=== PATIENT | female | born 1985 | race Caucasian/White ===

== ENCOUNTER → 2019-04-11 15:31 | Observation (INO) ==
[2019-04-11 14:43] LABS: Bilirubin,Urine Negative (Negative); Blood,Urine Negative (Negative); Clarity,Urine Cloudy (Clear); Color,Urine Yellow (Yellow); Glucose,Urine (UA) Normal (Normal); Ketones,Urine Trace mg/dL (Negative); Leukocyte Esterase,Urine Negative (Negative); Nitrite,Urine Negative (Negative); PH,Urine 6.5 pH Units (5.0-8.0); Protein,Urine Trace mg/dL (Neg-Trace); Specific Gravity,Urine > 1.030 (1.010-1.025); Urobilinogen,Urine Normal (Normal)
[2019-04-11 14:45] LABS: Bacteria,Urine Moderate per hpf (None-Few); Hyaline Casts,Urine Few per lpf (None-Few); Squamous Epithelial Cell,Urine Many per lpf (None-Few)
[2019-04-11 14:56] LABS: Amphetamine Screen,Urine Positive ng/mL (Cutoff=1000); Barbiturate Screen,Urine Negative ng/mL (Cutoff=200); Benzodiazepines Screen,Urine Negative ng/mL (Cutoff=200); Cannabinoid Screen,Urine Negative ng/mL (Cutoff = 50); Cocaine Screen,Urine Negative ng/mL (Cutoff= 300); Opiate Screen,Urine Negative ng/mL (Cutoff=300); Phencyclidine Screen,Urine Negative ng/mL (Cutoff=25)
[2019-04-11 14:57] LABS: RBC,Urine 0-3 per hpf (0-3)
== END | disposition home or self-care (01) ==
LOC: 1NENULAB
PROVIDERS: ADMIT Advanced Practice Midwife; ATTEND Advanced Practice Midwife

== ENCOUNTER → 2019-05-19 12:02 | Observation (INO) ==
[2019-05-19 11:12] LABS: Basophils % 0.3 %; Eosinophils # 0.3 K/mcL (0.0-0.6); Eosinophils % 2.4 %; Hematocrit 33.4 % (35.3-44.9); Hemoglobin 11.2 g/dL (11.5-15.4); Immature Granulocytes % 0.5 % (0-4); Lymphocytes # 1.7 K/mcL (0.6-4.6); Lymphocytes % 12.2 %; Mean Corpuscular HGB Conc 33.5 g/dL (31.6-35.5); Mean Corpuscular Hemoglobin 27.5 pg (28.0-33.3); Mean Corpuscular Volume 82.1 fL (83.0-100.0); Mean Platelet Volume 11.2 fL (9.4-12.4); Monocytes # 0.7 K/mcL (0.0-1.3); Monocytes % 4.7 %; Neutrophils # 11.4 K/mcL (1.6-8.9); Platelet Count 255 K/mcL (140-400); Red Blood Count 4.07 M/mcL (3.82-4.97); Red Cell Distribution Width 14.6 % (11.5-14.5); Segmented Neutrophils % 79.9 %; White Blood Count 14.3 K/mcL (4.3-11.1)
[2019-05-19 11:19] LABS: Protein/Creatinine Ratio,Urine 0.12 mg/mg (0.00-0.20)
[2019-05-19 11:25] LABS: Alanine Aminotransferase 12 Units/L (7-52); Aspartate Amino Transferase 15 Units/L (13-39); BUN/Creatinine Ratio 30 (6-26); Blood Urea Nitrogen 14 mg/dL (6-20); Lactate Dehydrogenase 127 Units/L (140-271); Uric Acid 5.4 mg/dL (2.3-7.6); eGFR For African Americans > 60 (> 60); eGFR For Non-African Americans > 60 (> 60)
== END | disposition home or self-care (01) ==
LOC: 1NENULAB
PROVIDERS: ADMIT Registered Nurse; ATTEND Registered Nurse

== ENCOUNTER 2019-05-21 22:00 | Inpatient (IN) ==
[2019-05-22] MEDS ORDERED: Lidocaine 1% 20 ML MDV ID PRN (12:22)
[2019-05-22] MEDS ORDERED: Naloxone 0.4 MG/ML INJ IVP PRN (12:22)
[2019-05-22] MEDS ORDERED: Ondansetron 4 MG/2 ML VIAL IVP PRN (12:22)
[2019-05-22] MEDS ORDERED: Famotidine 20 MG/2 ML VIAL IVP PRN (12:22)
[2019-05-22] MEDS ORDERED: *HR* FentaNYL (PF) 100 MCG/2 ML VIAL IVP PRN (12:22)
[2019-05-22] MEDS ORDERED: Azithromycin 500 MG in 0.9 % Sodium Chloride 250 ML IVPB ONE (12:22)
[2019-05-22] MEDS ORDERED: Metoclopramide 10 MG/2 ML VIAL IVP PRN (12:22)
[2019-05-22] MEDS ORDERED: EPHEDrine 50 MG/ML VIAL IVP PRN (12:45)
[2019-05-22 13:04] LABS: Basophils # 0.1 K/mcL (0.0-0.2); Basophils % 0.3 %; Eosinophils # 0.2 K/mcL (0.0-0.6); Eosinophils % 1.4 %; Hematocrit 33.4 % (35.3-44.9); Hemoglobin 11.2 g/dL (11.5-15.4); Immature Granulocytes % 0.5 % (0-4); Lymphocytes # 1.6 K/mcL (0.6-4.6); Lymphocytes % 10.9 %; Mean Corpuscular HGB Conc 33.5 g/dL (31.6-35.5); Mean Corpuscular Hemoglobin 27.9 pg (28.0-33.3); Mean Corpuscular Volume 83.3 fL (83.0-100.0); Mean Platelet Volume 11.1 fL (9.4-12.4); Monocytes # 0.6 K/mcL (0.0-1.3); Monocytes % 4.4 %; Platelet Count 255 K/mcL (140-400); Red Blood Count 4.01 M/mcL (3.82-4.97); Red Cell Distribution Width 14.6 % (11.5-14.5); Segmented Neutrophils % 82.5 %; White Blood Count 14.6 K/mcL (4.3-11.1)
[2019-05-22 14:47] LABS: Amphetamine Screen,Urine Negative ng/mL (Cutoff=1000); Barbiturate Screen,Urine Negative ng/mL (Cutoff=200); Benzodiazepines Screen,Urine Negative ng/mL (Cutoff=200); Cannabinoid Screen,Urine Negative ng/mL (Cutoff = 50); Cocaine Screen,Urine Negative ng/mL (Cutoff= 300); Opiate Screen,Urine Negative ng/mL (Cutoff=300); Phencyclidine Screen,Urine Negative ng/mL (Cutoff=25); Protein/Creatinine Ratio,Urine 0.12 mg/mg (0.00-0.20)
[2019-05-22 15:12] LABS: Alanine Aminotransferase 12 Units/L (7-52); Aspartate Amino Transferase 16 Units/L (13-39); BUN/Creatinine Ratio 30 (6-26); Blood Urea Nitrogen 14 mg/dL (6-20); Lactate Dehydrogenase 183 Units/L (140-271); Uric Acid 5.2 mg/dL (2.3-7.6); eGFR For African Americans > 60 (> 60); eGFR For Non-African Americans > 60 (> 60)
[2019-05-22] MEDS ORDERED: *HR* Labetalol 20 MG/4 ML SYRINGE IVP ONE ×2 (16:22→16:28)
[2019-05-23] MEDS ORDERED: Penicillin G Potassium 5,000,000 UNIT in 0.9 % Sodium Chloride Mini Bag 100 ML IVPB ONE
[2019-05-23] MEDS: Ringers Solution, Lactated 1,000 ML IVC SCH (00:02)
[2019-05-23] MEDS ORDERED: *HR* Labetalol 20 MG/4 ML SYRINGE IVP ONE (00:17)
[2019-05-23] MEDS ORDERED: miSOPROStoL 25 MCG TABLET PO ONE (02:00)
[2019-05-23] MEDS: Penicillin G Potassium 2,500,000 UNIT in 0.9 % Sodium Chloride 100 ML IVPB SCH ×5 (03:54→22:41)
[2019-05-23] MEDS ORDERED: miSOPROStoL 25 MCG TABLET PO PRN (09:11)
[2019-05-23] MEDS: miSOPROStoL 25 MCG TABLET VG PRN ×2 (18:42→23:13)
[2019-05-23] MEDS ORDERED: Oxytocin 20 units/ LR 1000 mL 20 UNIT/1,000 ML BAG IVC SCH (23:45)
[2019-05-24] MEDS: Penicillin G Potassium 2,500,000 UNIT in 0.9 % Sodium Chloride 100 ML IVPB SCH ×2 (03:06→06:33)
[2019-05-24] MEDS ORDERED: *HR* Labetalol 20 MG/4 ML SYRINGE IVP STA (03:44)
[2019-05-24] MEDS ORDERED: Famotidine 20 MG/2 ML VIAL IVP ONE (08:32)
[2019-05-24] MEDS ORDERED: Ringers Solution, Lactated 1,000 ML IVC ONE (08:32)
[2019-05-24] MEDS ORDERED: Oxytocin 20 units/ LR 1000 mL 20 UNIT/1,000 ML BAG IVC ONE (08:32)
[2019-05-24] MEDS ORDERED: Metoclopramide 10 MG/2 ML VIAL IVP ONE (08:32)
[2019-05-24] MEDS ORDERED: CeFAZolin Syr 3,000MG/30 ML 3,000 MG/30 ML SYRINGE IVPB ONE (08:32)
[2019-05-24] MEDS ORDERED: Azithromycin 500 MG in 0.9 % Sodium Chloride 250 ML IVPB ONE (08:32)
[2019-05-24] MEDS ORDERED: *HR* Phenylephrine 10 MG/ML VIAL ONE (10:24)
[2019-05-24] MEDS ORDERED: *HR* Oxytocin 10 UNIT/ML VIAL IM ONE (10:24)
[2019-05-24] MEDS ORDERED: *HR* FentaNYL (PF) 100 MCG/2 ML VIAL ONE (10:24)
[2019-05-24] MEDS ORDERED: *HR* Morphine Sulfate/PF 10 MG/10 ML AMPUL ONE (10:24)
[2019-05-24] MEDS ORDERED: Ringers Solution, Lactated 1,000 ML ONE (10:24)
[2019-05-24] MEDS ORDERED: EPHEDrine 50 MG/ML VIAL ONE (12:10)
[2019-05-24] MEDS ORDERED: Ondansetron 4 MG/2 ML VIAL IVP ONE (13:26)
[2019-05-24] MEDS ORDERED: *HR* Promethazine 25 MG/ML VIAL IVP PRN (13:26)
[2019-05-24] MEDS ORDERED: *HR* OxyCODONE/APAP 5/325 TABLET PO PRN ×2 (13:26→15:41)
[2019-05-24] MEDS ORDERED: *HR* HYDROmorphone (PF) 1 MG/ML SYRINGE IVP PRN (13:26)
[2019-05-24] MEDS ORDERED: Ketorolac 30 MG/ML VIAL IVP ONE (13:26)
[2019-05-24] MEDS ORDERED: Ondansetron 4 MG/2 ML VIAL ONE (13:39)
[2019-05-24] MEDS ORDERED: *HR* OxyCODONE Immed Rel 5 MG TABLET PO PRN (15:41)
[2019-05-24] MEDS ORDERED: Simethicone 80 MG TAB.CHEW PO PRN (15:41)
[2019-05-24] MEDS ORDERED: Sennosides 8.6 MG TABLET PO PRN (15:41)
[2019-05-24] MEDS ORDERED: Ondansetron 4 MG/2 ML VIAL IVP PRN (15:41)
[2019-05-24] MEDS ORDERED: Metoclopramide 10 MG/2 ML VIAL IVP PRN (15:41)
[2019-05-24] MEDS ORDERED: Acetaminophen 325 MG TABLET PO PRN (15:41)
[2019-05-24] MEDS: cephALEXin 500 MG CAPSULE PO SCH ×2 (17:03→20:55)
[2019-05-24] MEDS: *HR* Metformin 500 MG TABLET PO SCH (20:55)
[2019-05-24] MEDS: Ibuprofen 600 MG TABLET PO PRN (23:57)
[2019-05-25] MEDS: Oxytocin 20 units/ LR 1000 mL 20 UNIT/1,000 ML BAG IVC SCH ×2 (02:45)
[2019-05-25] MEDS: Epidural Premix (fent/bupiv) 110 ML EP SCH ×2 (02:46→02:47)
[2019-05-25] MEDS: Ringers Solution, Lactated 1,000 ML IVC SCH ×2 (02:46→02:47)
[2019-05-25] MEDS: Penicillin G Potassium 2,500,000 UNIT in 0.9 % Sodium Chloride 100 ML IVPB SCH (02:48)
[2019-05-25] MEDS: *HR* Enoxaparin 40 MG/0.4 ML SYRINGE SQ SCH (06:25)
[2019-05-25 06:34] LABS: Basophils % 0.3 %; Eosinophils % 0.1 %; Hematocrit 29.3 % (35.3-44.9); Immature Granulocytes % 0.5 % (0-4); Lymphocytes # 1.3 K/mcL (0.6-4.6); Lymphocytes % 8.2 %; Mean Corpuscular HGB Conc 32.8 g/dL (31.6-35.5); Mean Corpuscular Hemoglobin 27.5 pg (28.0-33.3); Mean Platelet Volume 10.9 fL (9.4-12.4); Monocytes # 0.6 K/mcL (0.0-1.3); Monocytes % 3.8 %; Neutrophils # 13.4 K/mcL (1.6-8.9); Platelet Count 212 K/mcL (140-400); Red Blood Count 3.49 M/mcL (3.82-4.97); Red Cell Distribution Width 14.6 % (11.5-14.5); Segmented Neutrophils % 87.1 %; White Blood Count 15.3 K/mcL (4.3-11.1)
[2019-05-25 06:35] LABS: Hemoglobin 9.6 g/dL (11.5-15.4)
[2019-05-25] MEDS: Prenatal Vit/FA 1 EACH TABLET PO SCH (08:21)
[2019-05-25] MEDS: Ibuprofen 600 MG TABLET PO PRN ×2 (08:22→20:27)
[2019-05-25] MEDS: cephALEXin 500 MG CAPSULE PO SCH ×2 (08:22→20:13)
[2019-05-25] MEDS: Venlafaxine XR (24 HR) 150 MG CAP.ER.24H PO SCH (08:22)
[2019-05-25] MEDS: *HR* Metformin 500 MG TABLET PO SCH (20:13)
[2019-05-26] MEDS: Ibuprofen 600 MG TABLET PO PRN (03:43)
[2019-05-26] MEDS: *HR* Enoxaparin 40 MG/0.4 ML SYRINGE SQ SCH (06:40)
[2019-05-26] MEDS: Prenatal Vit/FA 1 EACH TABLET PO SCH (08:07)
[2019-05-26] MEDS: Venlafaxine XR (24 HR) 150 MG CAP.ER.24H PO SCH (08:07)
[2019-05-26] MEDS: cephALEXin 500 MG CAPSULE PO SCH (08:08)
[2019-05-26 09:15] VITALS: BP 122/78
== END 2019-05-26 12:28 | disposition home or self-care (01) | DRG 787 ==
LOC: 1NENULAB 05-22 12:15 → 1NENUOBS 05-24 16:25
PROVIDERS: ADMIT Registered Nurse; ATTEND Registered Nurse